=== PATIENT | female | born 1950 | race Caucasian/White ===

== ENCOUNTER 2016-12-07 18:51 | Emergency (ER) | payer OTHER ==
[2016-12-07] MEDS ORDERED: ASPIRIN 81 MG CHEWABLE TAB PO ONE (19:27)
[2016-12-07] MEDS ORDERED: MAALOX/LIDO/HYOSC GI COCKTAIL 55 ML BOTTLE PO ONE (19:28)
--- NOTE | 2016-12-07 19:28 | EDPHY ---
H & P HPI/ROS: CHIEF COMPLAINT: Chest and back pain. HISTORY OF PRESENT ILLNESS: The patient is a 66 year old female, with history of spontaneous PE and fallopian tube cancer, who presents with chest and back pain that has been intermittent for the past 4 days. The patient first experienced this pain between her shoulder blades 4 days ago. This pain lasted for a few hours. She reports a sensation of her "chest being squeezed". This pain has since returned intermittently. She started to feel nauseous and has had multiple headaches. She has seen her chiropractor and been told that her spine is in alignment. Today while getting a massage she felt dizzy, nauseous, and lightheaded. Her left arm became numb and tingling. She has had this kind of tingling multiple times in the past and attributes it to thoracic outlet syndrome. She additionally notes increased fatigue throughout the past 4 days including increased shortness of breath with exertion. She does not currently feel SOB. The patient has a history of ongoing back pain. She has had cardiac evaluations in the past including ECHO, nuclear stress testing, and two cardiac catheterizations. She uses alternative medication for "microvascular CAD". She is not experiencing chest pain at present. REVIEW OF SYSTEMS: A 10 point review of systems was performed and is negative with the exception of the elements mentioned in the history of present illness. Source: Patient - Personal History Tetanus Vaccine Date: 2008 - Medical/Surgical History Hx Asthma: No Hx Chronic Respiratory Disease: No Hx Diabetes: No Hx Cardiac Disease: No Hx Renal Disease: No Hx Cirrhosis: No Hx Alcoholism: No Hx HIV/AIDS: No Hx Splenectomy or Spleen Trauma: No Other PMH: HTN,. Chronic fatigue. pleural effusions. Sjogrens. 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 - Family History Significant Family History: No pertinent family hx - Social History Smoking Status: Never smoked Drug Use: None Additional Social History: Single. Disabled. - Physical Exam Exam: General Appearance: Alert, no acute distress. BP 165/106. Eyes: Pupils equal and round, no conjunctival injection, no discharge. ENT, Mouth: Mucous membranes are moist, no oropharyngeal erythema or edema. Neck: No lymphadenopathy, supple. Nontender over cervical spine in midline. Respiratory: Lungs are clear to auscultation; no wheezes, rales, or rhonchi. Cardiovascular: Regular rate and rhythm; no murmur, rub, or gallop. Gastrointestinal: Abdomen is soft and non tender, no masses or organomegaly, bowel sounds normal. Skin: Warm and dry, no rashes, normal color. Back: Nontender to palpation over the thoracolumbar spine. Extremities: No lower extremity edema, no calf tenderness or swelling. Neurological: Alert and oriented. Moving all four extremities easily and equally. 5/5 upper extremity strength bilaterally. Normal sensation to light touch both arms. Psychiatric: Normal affect. Constitutional: Initial Vital Signs Temperature (C) 36.8 C 12/07/16 19:31 Heart Rate 78 12/07/16 19:31 Respiratory Rate 14 12/07/16 19:31 Blood Pressure 165/106 H 12/07/16 19:31 O2 Sat (%) 95 12/07/16 19:31 O2 Delivery Mode Room Air Allergies/Adverse Reactions: morphine [Morphine] Allergy (Intermediate, Verified 12/07/16 19:27) DYSKENESIAS simvastatin Allergy (Intermediate, Verified 12/07/16 19:27) Other-Enter Comments omeprazole [From Prilosec] Allergy (Verified 12/07/16 19:27) omeprazole magnesium [From Prilosec] Allergy (Verified 12/07/16 19:27) valsartan Allergy (Verified 12/07/16 19:27) Home Medications: Medication Instructions Recorded Levothyroxine [Synthroid 50 mcg 50 mcg PO DAILY06 06/03/12 (*)] Metronidazole [Metrogel] 1 bonita TP HS 06/28/14 Multivitamins [Multivitamin (*)] 1 each PO DAILY 06/28/14 [place]-3 Fatty Acids [Fish Oil 1000 3,000 mg PO DAILY 06/28/14 mg (*)] Tears/Hypromellose [Natural 1 - 2 drops EACHEYE PRN PRN 06/28/14 Balance] Diovan 12/07/16 Medical Decision Making - Diagnostics EKG Interpretation: The 12 lead EKG was interpreted by myself. See hard copy and/or "tracemaster" electronic copy for interpretation: No significant. changes from prior EKG. Imaging: Study: X-ray of the chest was obtained. Results: Mild bronchitis with probable left basilar atelectasis. Images were interpreted by the radiologist, Dr. Albrecht. I viewed the images myself on the PACS system. ED Course/Re-evaluation: The patient received 324mg Aspirin PO. I ordered a Gi cocktail, but the patient did not want to take it. Chest x-ray is pending. 8:10 p.m.: Chest x-ray is negative for pneumonia. Troponin is normal. Patient has slightly elevated d-dimer. I discussed findings with the patient. She tells me she normally has an elevated d-dimer and has had negative CTA in similar circumstances. She declines further imaging at this time. She understands that PE can be life threatening. She is able to make her own medical decisions and understands risks and benefits of CT of chest. She is not hypoxic, tachycardic, tachypneic and is not having chest pain at present. I offered admission to have repeat troponin, patient declines. Patient understands risks of ACS and is comfortable going home. She will continue to monitor her symptoms at home. She will return if she develops return of chest pain or other symptoms. She plans to follow up with PCP. She knows that her blood pressure has been elevated in urgent care today. Addendum: This patient was seen in the urgent care setting not the emergency department. PQRS--she does not report signs or sx or depression, meds were reviewed, advanced directives not discussed, she does not have COPD and spirometry not performed, she does not smoke. Differential Diagnosis: I considered a ddx that includes but is not limited to ACS, PE, pneumonia, pneumothorax, cervical radiculopathy, costochondritis, and pleurisy. - Data Points Laboratory Results: Laboratory Results 12/07/16 19:33 12/07/16 19:33 Medications Given: Discontinued Medications Aspirin (Aspirin) 324 mg PO EDNOW ONE Stop: 12/07/16 19:28 Last Admin: 12/07/16 19:50 Dose: 324 mg Miscellaneous Medication (Gi Cocktail) 55 ml PO EDNOW ONE Stop: 12/07/16 19:29 Last Admin: 12/07/16 19:55 Dose: 55 ml Departure - Departure Disposition: Home, Routine, Self-Care Clinical Impression: Upper back pain Condition: Good Instructions: Back Pain (ED) Additional Instructions: Go to the Emergency Department if you develop shortness of breath, severe nausea , worsening chest pain, new or worsening symptoms. Call your primary care physician tomorrow to arrange a followup appointment. Referrals: Pastora Monreal MD [Primary Care Provider] - As per Instructions Report Scribed for: Darcy Okeefe Report Scribed by: Mary Barros Date of Report: 12/07/16 Time of Report: 19:30 Physician Review and Approval Statement: 12/08/16 13:17 Portions of this chart were entered by a behavioral medical director. I personally performed the history, physical exam, MDM. I have reviewed and agree with the documentation.
[2016-12-07 19:35] VITALS: RESP 14; TEMP 98.2
[2016-12-07 19:40] LABS: % IMMATURE GRANULYOCYTES 0.6 % (0.0-1.1); ABSOLUTE IMMATURE GRANULOCYTES 0.04 10^3/uL (0.00-0.10); ADD DIFF? NO; ADD MORPH? NO; ADD SCAN? NO; ATYPICAL LYMPHOCYTE FLAG 0 (0-99); FRAGMENT RBC FLAG 0 (0-99); HEMATOCRIT 43.3 % (38.0-47.0); LEFT SHIFT FLG 0 (0-99); LIPEMIA HEMOLYSIS FLAG 90 (0-99); MEAN CELL HEMOGLOBIN 29.8 pg (27.9-34.1); MEAN CELL HEMOGLOBIN CONCENTR. 34.6 g/dL (32.4-36.7); MEAN CELL VOLUME 86.1 fL (81.5-99.8); MEAN PLATELET VOLUME 9.6 fL (8.7-11.7); PLATELET CLUMPS FLAG 0 (0-99); PLATELET COUNT 293 10^3/uL (150-400); RED BLOOD CELL COUNT 5.03 10^6/uL (4.18-5.33); RED CELL DISTRIBUTION WIDTH 13.2 % (11.5-15.2)
--- NOTE | 2016-12-07 19:47 | CPEKG ---
Heart Rate: 78 RR Interval: 769 P-R Interval: 176 QRSD Interval: 70 QT Interval: 388 QTC Interval: 442 P [place]: 63 QRS [place]: 36 T Wave [place]: 32 EKG Severity - ABNORMAL ECG - EKG Impression: SINUS RHYTHM EKG Impression: PROBABLE POSTERIOR INFARCT Preliminary Awaiting MD Review
[2016-12-07 19:52] LABS: ANION GAP 16 mEq/L (8-16); CALCIUM 9.9 mg/dL (8.5-10.4); CARBON DIOXIDE 21 mEq/l (22-31); CHLORIDE 103 mEq/L (97-110); CREATININE 0.8 mg/dL (0.6-1.0); GLOMERULAR FILTRATION RATE > 60; GLUCOSE 99 mg/dL (70-100); POTASSIUM 4.2 mEq/L (3.5-5.2); SODIUM 140 mEq/L (134-144)
[2016-12-07 20:05] LABS: TROPONIN I < 0.012 ng/mL (0-0.034)
[2016-12-07 20:46] VITALS: BP 144/88; PULSE 76; O2SAT 93
== END 2016-12-07 20:44 | disposition home or self-care (01) ==
LOC: CED 18:51
DX: M54.9 Dorsalgia, unspecified (principal); R07.9 Chest pain, unspecified; I10 Essential (primary) hypertension; Z86.711 Personal history of pulmonary embolism
CPT/HCPCS: 71020; 93005; G0463; 80048-PO; 84484-PO; 85025-PO; 85378-PO

== ENCOUNTER → 2017-03-11 | Outpatient (CLI) | payer OTHER | LOC: FIMAGING 16:00 | PROVIDERS: ATTEND Physician Assistant Medical | DX: G31.9 Degenerative disease of nervous system, unspecified (principal); Z85.9 Personal history of malignant neoplasm, unspecified ==

== ENCOUNTER → 2017-03-17 | Outpatient (CLI) | payer OTHER | LOC: CIMAGING 15:02 | PROVIDERS: ATTEND Family Medicine | DX: Z12.31 Encounter for screening mammogram for malignant neoplasm of breast (principal) | CPT/HCPCS: G0202 ==

== ENCOUNTER → 2017-04-04 | Outpatient (CLI) | payer OTHER | LOC: FIMAGING 15:22 | PROVIDERS: ATTEND Physician Assistant Medical | DX: M51.34 Other intervertebral disc degeneration, thoracic region (principal); M51.36 Other intervertebral disc degeneration, lumbar region; M46.96 Unspecified inflammatory spondylopathy, lumbar region; M48.04 Spinal stenosis, thoracic region; M48.06 Spinal stenosis, lumbar region ==

== ENCOUNTER → 2018-03-15 | Outpatient (CLI) | payer OTHER | LOC: CIMAGING 14:55 | PROVIDERS: ATTEND Family Medicine | DX: Z12.31 Encounter for screening mammogram for malignant neoplasm of breast (principal) ==

== ENCOUNTER → 2018-09-14 | Outpatient (CLI) | payer OTHER | LOC: CIMAGING 16:42 | PROVIDERS: ATTEND Family Medicine | DX: I65.22 Occlusion and stenosis of left carotid artery (principal) | CPT/HCPCS: 76536-PO ==

== ENCOUNTER 2018-11-14 20:41 | Emergency (ER) | payer OTHER ==
[2018-11-14] MEDS ORDERED: NS 1,000 ML IV ONE (21:46)
--- NOTE | 2018-11-14 21:53 | EDPHY ---
H & P Time Seen by Provider: 11/14/18 21:00 HPI/ROS: CHIEF COMPLAINT: Abdominal pain HISTORY OF PRESENT ILLNESS: Patient presents with multiple complaints including a year more of shortness of breath, chronic fatigue, weakness, difficulty sleeping. The reason she states for her visit today is left upper quadrant abdominal pain. She states that started approximately 8 days and over the last 48 hr has become more constant sharp and severe. She describes it as starting as a dull ache with occasional sharp episodes with radiation to the left side. It is worsened with leaning over. She has had several episodes over the last 5 days of crampy pain with bowel movements as well as some nausea and vomiting. She also states she has felt much more tired over the last few days with increased heart rate and more than usual dyspnea on exertion. She has had no fevers. She does have some chronic chest pain which she describes as related to heartburn but this is not worse than usual. She denies dysuria. REVIEW OF SYSTEMS: Constitutional: No fever, no chills. Eyes: No discharge. ENT: No sore throat. Cardiovascular: Racing heart, chest pain per HPI. Respiratory: No cough, dyspnea on exertion, no pleuritic chest pain. Gastrointestinal: Per HPI Genitourinary: No dysuria. Musculoskeletal: No back pain. Skin: No rashes. Neurological: No headache. General Appearance: Alert, no distress. Eyes: Pupils equal and round no pallor or injection. ENT, Mouth: Mucous membranes moist. Respiratory: There are no retractions, lungs are clear to auscultation. Cardiovascular: Regular rate and rhythm. Gastrointestinal: Abdomen is soft , obese, bowel sounds normal. Mild tenderness to palpation epigastric region to left upper quadrant. No rebound. Neurological: Awake, alert, normal cranial nerves. Skin: Warm and dry, no rashes. Musculoskeletal: Neck is supple nontender. Extremities are symmetrical, full range of motion, no edema. Psychiatric: Patient is oriented X 3, there is no agitation. Medical/surgical history: Fallopian tube cancer, adenocarcinoma. Chronic fatigue, Sjogren syndrome, pulmonary embolism, pleural effusions, multiple abdominal surgeries for cancer and adhesions. Microvascular disease. Hypertension. Social history: Denies tobacco, EtOH, drugs. Lives alone. Smoking Status: Never smoked Constitutional: Initial Vital Signs Temperature (C) 36.8 C 11/14/18 21:02 Heart Rate 105 H 11/14/18 21:02 Respiratory Rate 18 11/14/18 21:02 Blood Pressure 178/102 H 11/14/18 21:02 O2 Sat (%) 91 L 11/14/18 21:02 O2 Delivery Mode Room Air Allergies/Adverse Reactions: morphine [Morphine] Allergy (Intermediate, Verified 12/07/16 19:27) DYSKENESIAS simvastatin Allergy (Intermediate, Verified 12/07/16 19:27) Other-Enter Comments omeprazole [From Prilosec] Allergy (Verified 12/07/16 19:27) omeprazole magnesium [From Prilosec] Allergy (Verified 12/07/16 19:27) valsartan Allergy (Verified 12/07/16 19:27) Home Medications: Medication Instructions Recorded Levothyroxine [Synthroid 50 mcg 50 mcg PO DAILY06 06/03/12 (*)] Multivitamins [Multivitamin (*)] 1 each PO DAILY 06/28/14 [place]-3 Fatty Acids [Fish Oil 1000 3,000 mg PO DAILY 06/28/14 mg (*)] Tears/Hypromellose [Natural 1 - 2 drops EACHEYE PRN PRN 06/28/14 Balance] metroNIDAZOLE [Metrogel] 1 bonita TP HS 06/28/14 Medical Decision Making - Diagnostics Imaging Results: Imaging Impressions Abdomen CT 11/14/18 21:47 Impression: No evidence of abdominopelvic inflammatory mass or ascites. [facility] was notified of these findings by telephone at 10:30 PM on 2018 Chest X-Ray 11/14/18 21:53 Impression: No acute findings in the chest to suggest pneumonia or heart failure. Mild peribronchial thickening suggestive of reactive small airways disease such as bronchitis or asthma. Imaging: Discussed imaging studies w/ order desk caller Radiologist ED Course/Re-evaluation: Re-evaluation after IV fluids, CT and chest x-ray. Discussed CT results which were essentially negative. As was chest x-ray. Heart rate now 88. Oxygen saturation high 90s. Laboratory evaluations within normal limits. Differential Diagnosis: Differential diagnosis includes but is not limited to diverticulitis, bowel obstruction, cancer recurrence, gastroenteritis. Patient with significant chronic fatigue and depressive symptoms with stated multiple concerns about cancer recurrence. Despite these concerns she has been unable to get in to see her primary care physician for reasons related to transportation and feeling too sick to go see her doctor. I discussed with her the importance of following up with primary care physician and the limits to what we can do in the emergency department for her more chronic conditions. Workup in the emergency department without specific etiology for her abdominal pain. No evidence of cancer recurrence, bowel obstruction, diverticulitis, or other significant infectious or inflammatory process. Reviewed return precautions. Stable for discharge. - Data Points Laboratory Results: 11/14/18 21:29 POC Sodium 141 mEq/L mEq/L (135-145) POC Potassium 4.0 mEq/L mEq/L (3.3-5.0) POC Chloride 104.0 mEq/L mEq/L (97-110) POC Total CO2 21 mEq/L L mEq/L (22-31) POC BUN 19 mg/dL mg/dL (7-23) POC Creatinine 1.3 mg/dL H mg/dL (0.6-1.0) POC Glucose 102 mg/dL H mg/dL (70-100) POC Calcium 9.9 mg/dL mg/dL (8.5-10.4) POC Total Bilirubin 1.8 mg/dL H mg/dL (0.1-1.4) POC AST 41 IU/L IU/L (14-46) POC ALT 29 IU/L IU/L (9-52) POC Alk Phosphatase 65 IU/L IU/L (38-126) POC Total Protein 7.5 g/dL g/dL (6.3-8.2) POC Albumin 4.6 g/dL g/dL (3.5-5.0) Medications Given: Discontinued Medications Sodium Chloride (Ns) 1,000 mls @ 0 mls/hr IV ONCE ONE; Wide Open PRN Reason: Protocol Stop: 11/14/18 21:47 Last Admin: 11/14/18 21:50 Dose: 1,000 mls Point of Care Test Results: CBC CBC Collection Date 11/14/18 CBC Collection Time 21:25 WBC 8.91 RBC 4.87 HGB 14.8 HCT 41.3 PLT 344 Neut # 4.91 Neut 55.1 LYMPH # 3.03 LYMPH 34.0 MCV 84.8 Chemistry 11/14/18 21:29 POC Sodium 141 mEq/L mEq/L (135-145) POC Potassium 4.0 mEq/L mEq/L (3.3-5.0) POC Chloride 104.0 mEq/L mEq/L (97-110) POC Total CO2 21 mEq/L L mEq/L (22-31) POC BUN 19 mg/dL mg/dL (7-23) POC Creatinine 1.3 mg/dL H mg/dL (0.6-1.0) POC Glucose 102 mg/dL H mg/dL (70-100) POC Calcium 9.9 mg/dL mg/dL (8.5-10.4) POC Total Bilirubin 1.8 mg/dL H mg/dL (0.1-1.4) POC AST 41 IU/L IU/L (14-46) POC ALT 29 IU/L IU/L (9-52) POC Alk Phosphatase 65 IU/L IU/L (38-126) POC Total Protein 7.5 g/dL g/dL (6.3-8.2) POC Albumin 4.6 g/dL g/dL (3.5-5.0) Urine Dip Collection Date 11/14/18 Collection Time 21:08 Specific [place] (1.002-1.030) 1.010 PH (5.0-7.5) 6.5 Leukocytes (Negative) 1+ Nitrites (Negative) Negative Protein (Negative) Negative Glucose (Negative) Negative Ketones (Negative) Negative Urobilnogen (0.2-1.0 EU) 2.0 Bilirubin (Negative) Negative Blood (Negative) Trace Departure - Departure Clinical Impression: Abdominal pain Qualifiers: Abdominal location: left upper quadrant Qualified Code(s): R10.12 - Left upper quadrant pain Condition: Fair Instructions: Abdominal Pain (ED) Additional Instructions: Stay well hydrated and advance diet slowly. Strongly recommend he follow up with her primary care physician in the next 1-2 weeks to discuss your multiple symptoms and concerns. You should also follow up for the Holter monitor as previously ordered. Your CT scan today showed no concerning findings or evidence of cancer recurrence. Referrals: Pastora Monreal MD [Primary Care Provider] - As per Instructions
[2018-11-14] MEDS ORDERED: IOPAMIDOL (ISOVUE-300) 100 ML BTL ONE (21:54)
[2018-11-14 22:49] VITALS: BP 172/88
== END 2018-11-14 22:54 | disposition home or self-care (01) ==
LOC: CED 20:41
DX: R10.12 Left upper quadrant pain (principal); E86.9 Volume depletion, unspecified
CPT/HCPCS: 71046; 74177; 96360; 99285; Q9967; 80053-ER

== ENCOUNTER → 2018-12-06 | Outpatient (CLI) | payer OTHER | LOC: BHFA 16:00 | PROVIDERS: ATTEND Internal Medicine Cardiovascular Disease | DX: R00.2 Palpitations (principal) ==

== ENCOUNTER → 2019-02-01 | Outpatient (CLI) | payer OTHER | LOC: BHFA 14:45 | PROVIDERS: ATTEND Internal Medicine Cardiovascular Disease | DX: R55 Syncope and collapse (principal); I25.10 Atherosclerotic heart disease of native coronary artery without angina pectoris; I47.1 Supraventricular tachycardia ==

== ENCOUNTER → 2019-03-28 | Outpatient (CLI) | payer OTHER | LOC: CIMAGING 14:37 ==